=== PATIENT | female | born 1995 | race Caucasian/White ===

== ENCOUNTER 2017-05-13 16:03 | Outpatient (CLI) | payer BC ==
[2017-05-13 16:52] VITALS: BP 121/62; PULSE 77; RESP 16; TEMP 97.5
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
== END 2017-05-13 16:50 | disposition home or self-care (01) ==
LOC: FBPOP 16:03
PROVIDERS: ATTEND Obstetrics & Gynecology
DX: O99.89 Other specified diseases and conditions complicating pregnancy, childbirth and the puerperium (principal); G89.11 Acute pain due to trauma; Z3A.25 25 weeks gestation of pregnancy
CPT/HCPCS: 99213

== ENCOUNTER 2017-09-01 22:06 | Outpatient (CLI) | payer BC ==
[2017-09-01 22:51] VITALS: BP 133/70; PULSE 94; RESP 16; TEMP 97.9
--- NOTE | 2017-09-09 13:05 | P.MSEPDOC ---
Presenting Problems - Arrival Data Date of Arrival on Unit: 09/01/17 Time of Arrival on Unit: 22:05 Mode of Transport: Ambulatory - Complaint OB-Reason for Admission/Chief Complaint: Decreased Movement Medical History - Information : 2 Para: 0 Term: 0 : 0 Abortions: Spontaneous or Elective: 1 Number of Living Children: 1 - Gestational Age Gestational Age by SAUL (wks/days): 38 Weeks and 1 Days Review of Systems - Review of Systems Constitutional: No problems Breast: No problems ENT: No problems Cardiovascular: No problems Respiratory: No problems Gastrointestinal: No problems Genitourinary: No problems Musculoskeletal: No problems Neurological: No problems Skin: No problems Vital Signs - Temperature Temperature: 97.9 F Temperature Source: Temporal Artery Scan - Pulse Right Brachial Pulse Rate: 94 - Respirations Respiratory Rate: 16 Oxygen Delivery Method: Room Air - Blood Pressure Right Arm Blood Pressure: 133/70 Blood Pressure Mean: 91 Blood Pressure Source: Automatic Cuff Medical Screen Scoring (Pre) - Cervical Exam Dilation: Exam Deferred - Uterine Contractions Frequency: N/A Duration: N/A Intensity: N/A - Maternal Vital Signs Maternal Temperature: N/A Signs of Preeclampsia: N/A Maternal Respirations: N/A - Pain Assessment Pain Scale Used: Numeric (1 - 10) Pain Intensity: 0 - Maternal Trauma Maternal Trauma: N/A - Assessment Baseline FHR: 130 Heart Rate - NICHD Category: Category I (Normal) = 0 NST: Reactive Position: N/A Station: N/A - Total Score Total Score (Pre): 0 - Level of Risk Level of Risk: Low (0-5) Physician Notification (Pre) - Physician Notified Physician Notified Date: 09/01/17 Physician Notified Time: 22:40 Physician/Practitioner Notifed:: Dr. Casas Spoke With: Dr. Casas New Order Received: Yes - Notification Comment Comment: discharge pt home Disposition - Disposition OB Disposition: Discharge to home, Written follow up instructions reviewed Discharge Date: 09/01/17 Discharge Time: 22:50 I agree with the RN Medical Screening Exam: Yes Risk & Benefit of care provided described in d/c instruction: Yes Diagnosis: DECREASED MOVEMENTS, UNSP TRIMESTER, UNSP
== END 2017-09-01 22:50 | disposition home or self-care (01) ==
LOC: FBPOP 22:06
PROVIDERS: ATTEND Obstetrics & Gynecology
DX: O36.8190 Decreased fetal movements, unspecified trimester, not applicable or unspecified (principal); Z3A.38 38 weeks gestation of pregnancy
CPT/HCPCS: 59025; 99213

== ENCOUNTER 2018-01-27 20:00 | Emergency (ER) | payer BC, OTHER ==
--- NOTE | 2018-01-27 22:03 | ED ---
General Adult HPI - General Chief complaint: Urogenital Stated complaint: Dysuria Time Seen by Provider: 01/27/18 21:55 Source: patient, RN notes reviewed Mode of arrival: ambulatory Limitations: no limitations - History of Present Illness Initial comments: Patient is a pleasant 22-year-old female presenting to the emergency Department with complaints of dysuria. Onset of symptoms was a couple of days ago. Patient has noticed occasional blood. No discharge or vaginal discharge. No pelvic pain. No patient did have unprotected intercourse 1 week ago and does have some concern of possible STD. Patient did have an IUD placed 2 months ago. No back pain. Symptoms are not similar to previous urinary tract infection. - Related Data Previous Rx's Medication Instructions Recorded Sulfamethox-Tmp 800-160Mg [Bactrim 1 each PO Q12HR #14 tab 01/27/18 DS 800-160 mg] Allergies Allergy/AdvReac Type Severity Reaction Status Date / Time No Known Allergies Allergy Verified 01/27/18 22:26 Review of Systems ROS Statement: Those systems with pertinent positive or pertinent negative responses have been documented in the HPI. ROS Other: All systems not noted in ROS Statement are negative. Constitutional: Denies: fever Eyes: Denies: eye pain ENT: Denies: ear pain Respiratory: Denies: cough Cardiovascular: Denies: chest pain Endocrine: Denies: fatigue Gastrointestinal: Denies: abdominal pain Genitourinary: Reports: dysuria. Denies: discharge Musculoskeletal: Denies: back pain Skin: Denies: rash Neurological: Denies: weakness Past Medical History Past Medical History: No Reported History History of Any Multi-Drug Resistant Organisms: None Reported Past Surgical History: Appendectomy, Section, Cholecystectomy Past Anesthesia/Blood Transfusion Reactions: No Reported Reaction Past Psychological History: No Psychological Hx Reported Smoking Status: Current every day smoker Past Alcohol Use History: Occasional Past Drug Use History: Marijuana - Past Family History Mother Family Medical History: No Reported History General Exam Limitations: no limitations General appearance: alert, in no apparent distress Head exam: Present: atraumatic Eye exam: Present: normal appearance, PERRL ENT exam: Present: normal oropharynx Neck exam: Present: normal inspection Respiratory exam: Present: normal lung sounds bilaterally Cardiovascular Exam: Present: regular rate, normal rhythm GI/Abdominal exam: Present: soft. Absent: distended, tenderness External exam: Present: normal external exam (HELDER Hilliard is present during entire exam) Speculum exam: Present: normal speculum exam By manual exam: Present: normal by manual exam Extremities exam: Present: normal inspection Neurological exam: Present: alert Psychiatric exam: Present: normal affect, normal mood Skin exam: Present: normal color Course Vital Signs 01/27/18 20:41 Temperature 98.3 F Pulse Rate 100 Respiratory 20 Rate Blood Pressure 125/85 O2 Sat by Pulse 99 Oximetry Medical Decision Making - Medical Decision Making Urinalysis is questionable for mild urinary tract infection. Patient would like to have antibiotics pending urine culture results. Patient updated on results at this time and need for follow-up with primary care physician and further results. - Lab Data Lab Results 01/27/18 01/27/18 01/27/18 Range/Units 21:57 21:57 21:57 Urine Color Yellow Urine Appearance Clear (Clear) Urine pH 5.5 (5.0-8.0) Ur Specific [place] 1.019 (1.001-1.035) Urine Protein Negative (Negative) Urine Glucose (UA) Negative (Negative) Urine Ketones Negative (Negative) Urine Blood Moderate H (Negative) Urine Nitrite Negative (Negative) Urine Bilirubin Negative (Negative) Urine Urobilinogen <2.0 (<2.0) mg/dL Ur Leukocyte Esterase Small H (Negative) Urine RBC 7 H (0-5) /hpf Urine WBC 5 (0-5) /hpf Ur Squamous Epith Cells 4 (0-4) /hpf Urine Bacteria Rare H (None) /hpf Urine Mucus Rare H (None) /hpf Urine HCG, Qual Not Detected (Not Detectd) Trichomonas Ag (Rapid) Negative (Negative) Disposition Clinical Impression: Dysuria Disposition: HOME SELF-CARE Condition: Stable Instructions: Urinary Tract Infection in Women (ED) Additional Instructions: Please follow-up with primary care physician in the next day or 2 for recheck. Return for fever, pelvic pain, increase urinary problems, discharge, worsening symptoms or other concerns. Prescriptions: Sulfamethox-Tmp 800-160Mg [Bactrim DS 800-160 mg] 1 each PO Q12HR #14 tab Referrals: Arminda Jimenes MD [STAFF PHYSICIAN] - 1-2 days Time of Disposition: 23:08
[2018-01-27 22:48] LABS: Appearance,Urine Clear (Clear); Bacteria,Urine Rare /hpf; Bilirubin,Urine Negative (Negative); Blood,Urine Moderate (Negative); Color,Urine Yellow; Glucose,Urine (UA) Negative (Negative); Ketones,Urine Negative (Negative); Leukocyte Esterase,Urine Small (Negative); Mucus,Urine Rare /hpf; Nitrite,Urine Negative (Negative); PH, Urine 5.5 (5.0-8.0); Protein,Urine Negative (Negative); RBC,Urine 7 /hpf (0-5); Specific Gravity,Urine 1.019 (1.001-1.035); Squamous Epithelial Cell,Urine 4 /hpf (0-4); Urobilinogen,Urine <2.0 mg/dL (<2.0); WBC,Urine 5 /hpf (0-5)
[2018-01-27 23:21] VITALS: BP 123/69; PULSE 78; RESP 16; TEMP 97.9
[2018-01-29 14:03] LABS: C. trachomatis,PCR Negative (Neg,Equiv); Chlamydia trachomatis Source Vagina; N. gonorrhoeae,PCR Negative (Neg,Equiv); Neisseria Source Vagina
== END 2018-01-27 23:21 | disposition home or self-care (01) ==
LOC: EC 20:00
DX: R30.0 Dysuria (principal); F17.200 Nicotine dependence, unspecified, uncomplicated; Z90.49 Acquired absence of other specified parts of digestive tract; Z97.5 Presence of (intrauterine) contraceptive device
CPT/HCPCS: 81001; 81025; 87070; 87086; 87205; 87491; 87591; 87808; 99283

== ENCOUNTER 2023-09-03 11:29 | Outpatient (CLI) | payer BC, OTHER ==
--- NOTE | 2023-09-03 12:56 | US ---
EXAMINATION TYPE: US OB limited DATE OF EXAM: 09/03/2023 COMPARISON: NONE CLINICAL INDICATION: Female, 28 years old with history of vaginal bleeding; spotting Patient has hx o f UTI last month. EXAM PERFORMED: Transabdominal (TA) GESTATIONAL AGE / DATING Physician Established: (30 weeks/2 days) EDC: 11/10/2023 No growth performed on today?s study per ordering physician SURVEY PLACENTA: Posterior PREVIA: No Previa Ultrasound evidence of abruption? No (Tech?if abnormal transabdominally?image transvaginally to substantiate abnormality.) HEART RATE: 158 bpm RHYTHM: Normal IMPRESSION: Single viable intrauterine gestation with ultrasound evidence for complication.
[2023-09-03 14:29] VITALS: BP 115/57; PULSE 82; RESP 17; TEMP 97.6
--- NOTE | 2023-09-09 07:58 | P.MSEPDOC ---
Presenting Problems - Arrival Data Date of Arrival on Unit: 09/03/23 Time of Arrival on Unit: 11:29 Mode of Transport: Ambulatory - Complaint OB-Reason for Admission/Chief Complaint: Vaginal Bleeding Comment: pt presents to triage for spotting for the last few days, and getting worse, dk red blood per pt Medical History - Information : 3 Para: 1 Term: 1 : 0 Abortions: Spontaneous or Elective: 1 Number of Living Children: 1 - Gestational Age Gestational Age by SAUL (wks/days): 30 Weeks and 2 Days Review of Systems - Review of Systems Constitutional: No problems Breast: No problems ENT: No problems Cardiovascular: No problems Respiratory: No problems Gastrointestinal: No problems Genitourinary: No problems Musculoskeletal: No problems Neurological: No problems Skin: No problems Vital Signs - Temperature Temperature: 97.6 F Temperature Source: Temporal Artery Scan - Pulse Right Brachial Pulse Rate: 82 Pulse Assessment Method: Automatic Cuff - Respirations Respiratory Rate: 17 Oxygen Delivery Method: Room Air - Blood Pressure Right Arm Blood Pressure: 115/57 Blood Pressure Mean: 76 Blood Pressure Source: Automatic Cuff Medical Screen Scoring - Cervical Exam Dilation (cm): 0 Membranes: Intact - Assessment - Baby A Baseline FHR: 120 Heart Rate - NICHD Category: Category I (Normal) NST: Reactive Physician Notification - Physician Notified Physician Notified Date: 09/03/23 New Order Received: Yes - Notification Comment Comment: ultrasound of placenta and cervical exam performed, no abruption or previa per ultrasound, cervical exam closed thick and high, pt discharged home and will follow up in the office Maternal Triage Index - Maternal Triage Index Presenting for scheduled procedure w/no complaint: No - Stat/Priority 1 Stat Priority 1: No - Urgent/Priority 2 Urgent Priority 2: Yes Provider Notified: Fernanda Weston Provider Notified Time: 12:10 Criteria Met for Priority 2: pt presents to triage for spotting for the last few days, and getting worse, dk red blood per pt Disposition - Disposition OB Disposition: Triage, Discharge to home, Written follow up instructions reviewed Discharge Date: 09/03/23 Discharge Time: 13:25 I agree with the RN Medical Screening Exam: Yes Physician's MSE Comment: I have neither seen nor examined the patient Case reviewed; plan agreed upon as documented in EMR&OBIX.: Yes Diagnosis: MATERNAL CARE FOR PROBLEM, UNSP, THIRD * DO NOT USE *
== END 2023-09-03 13:25 | disposition home or self-care (01) ==
LOC: FBPOP 11:29
PROVIDERS: ATTEND Obstetrics & Gynecology
DX: O26.853 Spotting complicating pregnancy, third trimester (principal); O99.333 Smoking (tobacco) complicating pregnancy, third trimester; F17.200 Nicotine dependence, unspecified, uncomplicated; Z3A.30 30 weeks gestation of pregnancy; Z87.440 Personal history of urinary (tract) infections
CPT/HCPCS: 59025; 76815; 99213

== ENCOUNTER 2023-09-05 12:36 | Outpatient (CLI) | payer BC, OTHER ==
[2023-09-05 13:32] LABS: HCT 32.4 % (34.0-46.0); HGB 10.8 gm/dL (11.4-16.0); MCH 27.2 pg (25.0-35.0); MCHC 33.3 g/dL (31.0-37.0); MCV 81.8 fL (80.0-100.0); Mean Platelet Volume 6.9; Platelet Count 300 k/uL (150-450); RBC 3.96 m/uL (3.80-5.40); RDW 13.4 % (11.5-15.5); WBC 11.4 k/uL (3.8-10.6)
--- NOTE | 2023-09-05 14:42 | P.GSCN ---
History of Present Illness Consult date: 09/05/23 History of present illness: CHIEF COMPLAINT: Rectal bleeding HISTORY OF PRESENT ILLNESS: This is a 28-year-old female who presented to the [facility] triage for rectal bleeding. She has a known history of hemorrhoids. Patient reports last week she was done with hemorrhoids with mild bleeding and constipation. She adjusted the vitamin that was causing constipation and since then stools have been soft. However, this morning she had rectal bleeding with small clots and stool. And then she also passed blood with no stool. She denies any abdominal pain. Denies any rectal pain or irritation at this time. She denies any nausea or vomiting. Vitals have been stable. Hemoglobin is at 10.8. Patient does have prior history of anemia with her last . She denies being on any blood thinners. Last colonoscopy was over 10 years and had anal lesions at that time. PAST MEDICAL HISTORY: See below PAST SURGICAL HISTORY: See below MEDICATIONS: See below ALLERGIES: See below SOCIAL HISTORY: No illicit drug use. REVIEW OF SYSTEMS: CONSTITUTIONAL: Denies fever or chills. HEENT: Denies blurred vision, vision changes, or eye pain. Denies hemoptysis CARDIOVASCULAR: Denies chest pain or pressure. RESPIRATORY: No shortness of breath. GASTROINTESTINAL: See HPI for pertinent findings HEMATOLOGIC: Denies bleeding disorders. GENITOURINARY: Denies any blood in urine or increased urinary frequency. SKIN: Denies pruitis. Denies rash. PHYSICAL EXAM: VITAL SIGNS: stable. BP 115/65 HR 83 T 97.2 on room air 98% GENERAL: Well-developed in no acute distress. HEENT: No sclera icterus. Extraocular movements grossly intact. Moist buccal mucosa. Head is atraumatic, normocephalic. No nasal drainage. ABDOMEN: Soft. Obese. Nondistended. nontender Rectal: small external hemorrhoid. good rectal tone. tiny pink ting noted on glove during rectal. unable to palpate internal hemorrhoids. No stool present. Nontender NEUROLOGIC: Alert and oriented. Cranial nerves II through XII grossly intact. LABORATORY DATA: WBC 11.4 HGB 10.8 plt 300 IMAGING: ASSESSMENT: 1. Rectal bleeding likely due to hemorrhoids 2. Anemia 3. History of hemorrhoids with constipation 4. 30 weeks PLAN: -Patient can be discharged from surgical standpoint -Recommend outpatient follow-up in [address] Felder -Recommend to continue hemorrhoid cream -Tucks pads ordered Thank you for this consultation Physician Chain Sales Representative note has been reviewed by physician. Signing provider agrees with the documented findings, assessment, and plan of care. Past Medical History Past Medical History: No Reported History History of Any Multi-Drug Resistant Organisms: None Reported Past Surgical History: Appendectomy, Section, Cholecystectomy Past Anesthesia/Blood Transfusion Reactions: No Reported Reaction Smoking Status: Never smoker - Past Family History Mother Family Medical History: No Reported History Medications and Allergies Home Medications Medication Instructions Recorded Confirmed Type Omeprazole 20 mg PO DAILY 09/03/23 09/05/23 History Vit No.179/Iron/Folic 1 each PO DAILY 09/03/23 09/05/23 History [ Tablet] Allergies Allergy/AdvReac Type Severity Reaction Status Date / Time No Known Allergies Allergy Verified 09/05/23 12:49 Results - Labs 09/05/23 13:20 Abnormal Lab Results - Last 24 Hours (Table) 09/05/23 Range/Units 13:20 WBC 11.4 H (3.8-10.6) k/uL Hgb 10.8 L (11.4-16.0) gm/dL Hct 32.4 L (34.0-46.0) %
[2023-09-05 15:37] VITALS: BP 115/65; PULSE 83; RESP 18; TEMP 97.2
--- NOTE | 2023-09-09 07:59 | P.MSEPDOC ---
Presenting Problems - Arrival Data Date of Arrival on Unit: 09/05/23 Time of Arrival on Unit: 12:36 Mode of Transport: Ambulatory - Complaint OB-Reason for Admission/Chief Complaint: Other Comment: rectal bleeding Medical History - Information : 3 Para: 1 Term: 1 : 0 Abortions: Spontaneous or Elective: 1 Number of Living Children: 1 - Gestational Age Gestational Age by SAUL (wks/days): 30 Weeks and 4 Days Review of Systems - Review of Systems Constitutional: No problems Breast: No problems ENT: No problems Cardiovascular: No problems Respiratory: No problems Gastrointestinal: No problems Genitourinary: No problems Musculoskeletal: No problems Neurological: No problems Skin: No problems Vital Signs - Temperature Temperature: 97.2 F Temperature Source: Temporal Artery Scan - Pulse Right Sitting Pulse Rate: 83 Pulse Assessment Method: Automatic Cuff - Respirations Respiratory Rate: 18 Oxygen Delivery Method: Room Air O2 Sat by Pulse Oximetry: 98 - Blood Pressure Right Arm Supine Blood Pressure: 115/65 Blood Pressure Mean: 81 Blood Pressure Source: Automatic Cuff Medical Screen Scoring - Assessment - Baby A Baseline FHR: 125 Heart Rate - NICHD Category: Category I (Normal) NST: Reactive Physician Notification - Physician Notified Physician Notified Date: 09/05/23 Physician Notified Time: 12:55 Physician: Fernanda Weston Order Received: Yes (consult GI, draw cbc) - Notification Comment Comment: rounded on by GI, cleared for discharge with 1 week follow up with Emerita in office. script sent for tucks pads Maternal Triage Index - Maternal Triage Index Presenting for scheduled procedure w/no complaint: No - Stat/Priority 1 Stat Priority 1: No - Urgent/Priority 2 Urgent Priority 2: No - Prompt/Priority 3 Prompt Priority 3: No - Non-Urgent/Priority 4 Non-Urgent Priority 4: Yes Criteria Met for Priority 4: non urgent rectal bleeding, no vag bleeding, contractions, or other preg complaint Disposition - Disposition OB Disposition: Triage, Discharge to home, Written follow up instructions reviewed Discharge Date: 09/05/23 Discharge Time: 14:50 I agree with the RN Medical Screening Exam: Yes Physician's MSE Comment: I have neither seen nor examined the patient Case reviewed; plan agreed upon as documented in EMR&OBIX.: Yes Diagnosis: MATERNAL CARE FOR PROBLEM, UNSP, THIRD * DO NOT USE *
== END 2023-09-05 14:50 | disposition home or self-care (01) ==
LOC: FBPOP 12:36
PROVIDERS: ATTEND Obstetrics & Gynecology
DX: O47.03 False labor before 37 completed weeks of gestation, third trimester (principal); O99.333 Smoking (tobacco) complicating pregnancy, third trimester; F17.200 Nicotine dependence, unspecified, uncomplicated; Z3A.30 30 weeks gestation of pregnancy
CPT/HCPCS: 36415; 59025; 85027; 99213

== ENCOUNTER 2023-09-16 17:40 | Outpatient (CLI) | payer BC, OTHER ==
[2023-09-16] MEDS ORDERED: ACETAMINOPHEN TAB 325 MG TAB PO STA (18:33)
[2023-09-16 20:39] VITALS: BP 108/57; PULSE 89; RESP 16; TEMP 98.5
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
== END 2023-09-16 19:40 | disposition home or self-care (01) ==
LOC: FBPOP 17:40
PROVIDERS: ATTEND Obstetrics & Gynecology
DX: Z04.1 Encounter for examination and observation following transport accident (principal); O9A.213 Injury, poisoning and certain other consequences of external causes complicating pregnancy, third trimester; O99.333 Smoking (tobacco) complicating pregnancy, third trimester; F17.200 Nicotine dependence, unspecified, uncomplicated; Z3A.32 32 weeks gestation of pregnancy; V49.60XA Unspecified car occupant injured in collision with unspecified motor vehicles in traffic accident, initial encounter; Y92.410 Unspecified street and highway as the place of occurrence of the external cause
CPT/HCPCS: 59025; 99213

== ENCOUNTER 2023-11-03 05:57 | Inpatient (IN) | payer BC, OTHER ==
[2023-11-03] MEDS ORDERED: OXYTOCIN 10 UNIT/ML 1 ML VIAL IM PRN (06:06)
[2023-11-03] MEDS ORDERED: TERBUTALINE 1 MG/ML VIAL SQ PRN (06:06)
[2023-11-03] MEDS ORDERED: miSOPROStoL 200 MCG TAB PO PRN (06:06)
[2023-11-03] MEDS ORDERED: TRANEXAMIC 1,000 MG/100ML-NACL 1,000 MG in EMPTY BAG 1 BAG IV PRN (06:06)
[2023-11-03] MEDS ORDERED: METHYLERGONOVINE 0.2 MG/ML 1 ML AMP IM PRN (06:06)
[2023-11-03] MEDS ORDERED: LIDOCAINE 0.5% (PF) 5 MG/ML (50 ML SDV) SQ PRN (06:06)
[2023-11-03] MEDS ORDERED: CARBOPROST TROMETHAMINE 250 MCG/ML 1 ML AMP IM PRN (06:06)
[2023-11-03] MEDS: LACTATED RINGERS 1,000 ML IV SCH ×4 (06:19→19:07)
[2023-11-03 06:35] LABS: Basophils # (A) 0.1 k/uL (0-0.2); Basophils % (A) 0 %; Eosinophils # (A) 0.2 k/uL (0-0.7); Eosinophils % (A) 2 %; HCT 32.9 % (34.0-46.0); HGB 11.3 gm/dL (11.4-16.0); Hypochromasia Slight; Lymphocytes # (A) 2.2 k/uL (1.0-4.8); Lymphocytes % (A) 17 %; MCH 26.3 pg (25.0-35.0); MCHC 34.4 g/dL (31.0-37.0); Mean Platelet Volume 7.2; Monocytes # (A) 0.5 k/uL (0-1.0); Monocytes % (A) 4 %; Neutrophils # (A) 9.6 k/uL (1.3-7.7); Neutrophils % (A) 75 %; Platelet Count 281 k/uL (150-450); RBC 4.31 m/uL (3.80-5.40); RDW 14.5 % (11.5-15.5); WBC 12.8 k/uL (3.8-10.6)
[2023-11-03] MEDS: OXYTOCIN 30 UNITS/500 ML NS 30 UNIT in SALINE 1 500ML.BAG IV SCH (06:40)
[2023-11-03 06:56] LABS: MCV 76.4 fL (80.0-100.0)
--- NOTE | 2023-11-03 09:35 | P.HPOB ---
History of Present Illness H&P Date: 11/03/23 Chief Complaint: Induction of labor Ms. Marino is a 28 year old at 39 weeks and 0 days gestation with EDC of 11/10/2023 by LMP consistent with 9 week US who presents to labor and delivery for elective induction of labor. This will be a TOLAC as she has a primary section with her last due to arrest of active labor. The patient has been counseled on the risks of TOLAC including the <1% chance of uterine rupture which is an emergency for mother and baby. The patient had a growth ultrasound at 32 weeks which estimated the fetus to be measuring in the 43%ile for growth. work-up: blood type A positive, antibody screen negative, rubella immune, VDRL non-reactive, HBsAg negative, HIV negative, HCV Ab negative, gonorrhea negative, chlamydia negative, 1 hour GTT within normal limits, GBS negative. s/p Flu and TDap vaccines on 07/09 and 08/21, respectively. Past Medical History Past Medical History: No Reported History History of Any Multi-Drug Resistant Organisms: None Reported Past Surgical History: Appendectomy, Section, Cholecystectomy Past Anesthesia/Blood Transfusion Reactions: No Reported Reaction Past Psychological History: No Psychological Hx Reported Smoking Status: Former smoker Past Alcohol Use History: Occasional Past Drug Use History: Marijuana - Past Family History Mother Family Medical History: No Reported History Medications and Allergies Home Medications Medication Instructions Recorded Confirmed Type Vit No.179/Iron/Folic 1 each PO DAILY 09/03/23 11/03/23 History [ Tablet] RX: Omeprazole 20 mg PO DAILY 09/03/23 11/03/23 History Allergies Allergy/AdvReac Type Severity Reaction Status Date / Time No Known Allergies Allergy Verified 11/03/23 06:05 Exam Vital Signs Temp Pulse Resp BP Pulse Ox 11/03/23 06:04 96.8 F L 100 18 110/61 97 Intake and Output 11/02/23 11/03/23 11/03/23 22:59 06:59 14:59 Other: Weight 127.913 kg Focused physical exam is performed. This is a healthy-appearing in no apparent distress. Breathing is non-labored. Abdomen is gravid and non-tender. Cervical exam is fingertip dilated, 0% effacement, -3 station. A cooks catheter is placed with a speculum exam and both balloons are filled with 60cc of sterile water. Extremities non-tender and non-edematous. heart tones are Category I and tocometer is not graphing contractions well at this time. Results Result Diagrams: 11/03/23 06:00 Abnormal Lab Results - Last 24 Hours (Table) 11/03/23 Range/Units 06:00 WBC 12.8 H (3.8-10.6) k/uL Hgb 11.3 L (11.4-16.0) gm/dL Hct 32.9 L (34.0-46.0) % MCV 76.4 L D (80.0-100.0) fL Neutrophils # 9.6 H (1.3-7.7) k/uL Assessment and Plan Assessment: 28 year old at 39 weeks presenting for elective induction of labor and TOLAC Plan: Admit, NPO, cooks catheter for 6-12 hours with low-dose oxytocin followed by plan for AROM and pitocin per protocol. Continuous EFM and tocometer. Close monitoring of patient. Time with Patient: Less than 30
[2023-11-03] MEDS ORDERED: fentaNYL (PF) 50 MCG/ML 5 ML AMP ONE (17:35)
[2023-11-03] MEDS ORDERED: ROPIVACAINE 5 MG/ML 30 ML VIAL ONE (17:35)
[2023-11-03] MEDS ORDERED: SODIUM CHLORIDE 0.9% 250 ML BAG ONE (17:35)
[2023-11-04] MEDS: LACTATED RINGERS 1,000 ML IV SCH (02:00)
[2023-11-04] MEDS ORDERED: ZOLPIDEM 5 MG TAB PO PRN (04:00)
[2023-11-04] MEDS ORDERED: LANOLIN CREAM 5 GM TUBE TOPICAL PRN (04:00)
[2023-11-04] MEDS ORDERED: BENZOCAINE/MENTHOL SPRAY 1 GM/SPRAY AEROSOL TOPICAL PRN (04:00)
[2023-11-04] MEDS ORDERED: diphenhydrAMINE 50 MG CAP PO PRN (04:00)
[2023-11-04] MEDS ORDERED: SIMETHICONE 80 MG CHEWABLE PO PRN (04:00)
[2023-11-04] MEDS ORDERED: ACETAMINOPHEN TAB 325 MG TAB PO PRN (04:00)
[2023-11-04] MEDS ORDERED: diphenhydrAMINE 50 MG/ML 1 ML VIAL IVP PRN ×2 (04:00)
[2023-11-04] MEDS ORDERED: diphenhydrAMINE 25 MG CAP PO PRN (04:00)
[2023-11-04] MEDS ORDERED: HYDROCORTISONE 2.5% RECTAL CREAM 30 GM TUBE RECTAL PRN (04:00)
--- NOTE | 2023-11-04 04:00 | P.PROBDLV ---
Vaginal Delivery Note - . Vaginal Delivery Note: DATE OF SERVICE: 11/04/2023 PROCEDURE: Vaginal After Section ATTENDING: Dr. Fernanda Weston MD ESTIMATED BLOOD LOSS: 300 mL FINDINGS: VMI, Apgars 8/9. Weight 7 pounds and 4 ounces (3290 grams) PROCEDURE: Ms. Marino is a 28 year old at 39 weeks presenting to labor and delivery for elective induction of labor and TOLAC. The has been uncomplicated aside from one prior section for arrest in active labor. For further details, please review the admitting H&P. Pitocin was titrated per protocol. Cooks catheter was placed for cervical ripening. After cooks was removed, AROM was undertaken at 1550 revealing clear fluid. The patient received epidural anesthesia per her request. The patient was completely dilated at 256. She pushed effectively with Category I heart tones. A viable male was delivered at 330. The infant was placed on the maternal abdomen and bulb suctioned. The infant was noted to be spontaneously crying. Cord was clamped and cut after a 30-second delay. The was handed off to the pediatric team. Placenta was delivered whole with gentle cord traction at 333. Oxytocin was started to facilitate uterine tone. Uterine fundus was found to be firm and below the umbilicus upon fundal massage. Thorough examination of the cervix, vagina, periurethral area, and perineum revealed a large second degree perineal laceration that was repaired with 2-0 Vicryl in the usual fashion. The patient is stable and allowed to begin the bonding process.
[2023-11-04] MEDS: OXYTOCIN 30 UNITS/500 ML NS 30 UNIT in SALINE 1 500ML.BAG IV SCH (04:10)
[2023-11-04] MEDS: SENNOSIDES-DOCUSATE SODIUM 1 EACH TAB PO SCH ×2 (07:58→22:30)
[2023-11-04] MEDS: IBUPROFEN 600 MG TAB PO PRN ×2 (12:54→22:30)
[2023-11-05 07:09] LABS: Basophils # (A) 0.1 k/uL (0-0.2); Basophils % (A) 0 %; Eosinophils # (A) 0.4 k/uL (0-0.7); Eosinophils % (A) 3 %; HCT 30.1 % (34.0-46.0); Hypochromasia Moderate; Lymphocytes # (A) 2.5 k/uL (1.0-4.8); Lymphocytes % (A) 17 %; MCH 24.9 pg (25.0-35.0); MCHC 31.5 g/dL (31.0-37.0); MCV 78.9 fL (80.0-100.0); Mean Platelet Volume 7.3; Monocytes # (A) 0.6 k/uL (0-1.0); Monocytes % (A) 4 %; Neutrophils # (A) 11.3 k/uL (1.3-7.7); Neutrophils % (A) 75 %; Platelet Count 253 k/uL (150-450); RBC 3.81 m/uL (3.80-5.40); RDW 14.6 % (11.5-15.5)
[2023-11-05 07:39] LABS: HGB 9.5 gm/dL (11.4-16.0)
--- NOTE | 2023-11-05 08:24 | P.DS ---
Providers Date of admission: 11/03/23 05:57 Expected date of discharge: 11/05/23 Attending physician: Fernanda Weston MD Primary care physician: Stated None Hospital Course: Ms. Marino is a 28 year old now PPD#2 s/p vaginal after section that was uncomplicated. The patient is doing well this morning and had no acute events overnight. She has no complaints this morning. She reports minimal lochia, passing flatus, voiding without difficulty, ambulating, and eating/drinking without nausea or vomiting. doing well at bedside, s/p circumcision. She denies chest pain, shortness of breathing, fevers, or chills overnight. She denies pain or swelling in the legs. restrictions are reviewed with the patient including pelvic rest for 6 weeks. The patient is encouraged to call the office if she experiences any heavy bleeding, foul-smelling discharge, breast complaints, or any if she has any other concerns. She will follow up in the office with in 6 weeks for postoperative exam. She plans to use over the counter Motrin and Tylenol as needed for pain. All questions are answered. Assessment: 28 year old now PPD#2 s/p uncomplicated Patient Condition at Discharge: Good Plan - Discharge Summary New Discharge Prescriptions: No Action Vit No.179/Iron/Folic [ Tablet] 1 each PO DAILY Omeprazole 20 mg PO DAILY Discharge Medication List Omeprazole 20 mg PO DAILY 09/03/23 [History] Vit No.179/Iron/Folic [ Tablet] 1 each PO DAILY 09/03/23 [History] Follow up Appointment(s)/Referral(s): Fernanda Weston MD [STAFF PHYSICIAN] - 6 Weeks Activity/Diet/Wound Care/Special Instructions: Instructions 1. Do not begin any exercise program for 3 weeks. 2. Do not resume sexual relations for 6 weeks or longer if uncomfortable. 3. You may take tub baths or showers at any time. 4. You may use tampons if desired after 6 weeks. 5. Keep any areas repaired with stitches clean and dry. 6. If you are not nursing, wear a good fitting, supportive bra during the day and limit fluid intake for at least 1 week to prevent breast engorgement. 7. Call the office, , within the next week to make appointment for your 6 week checkup if it has not already been made. 8. Report any of the following occurrences to the doctor promptly: a. Heavy, excessive bleeding b. Chills, fever c. Burning or frequency of urination d. Pain or redness and breasts if nursing e. Increasing pain or swelling of vulva (stitches). In addition to the above instructions, the following additional should be followed: 1. No heavy lifting or straining (exercising) until after 6 week checkup. 2. Keep abdominal incision clean and dry: You may wear a dressing if more comfortable. 3. Make office appointment for 2 weeks after delivery date.. Discharge Disposition: HOME SELF-CARE
[2023-11-05 11:51] VITALS: BP 129/75; PULSE 74; RESP 17; TEMP 97.5
== END 2023-11-05 12:34 | disposition home or self-care (01) | DRG 807 ==
LOC: 4FBP 05:57
PROVIDERS: ADMIT Obstetrics & Gynecology; ATTEND Obstetrics & Gynecology
PROC: 10E0XZZ Delivery of Products of Conception, External Approach (ICD-10-PCS; principal; 2023-11-04)
PROC: 0KQM0ZZ Repair Perineum Muscle, Open Approach (ICD-10-PCS; 2023-11-04)
PROC: 10907ZC Drainage of Amniotic Fluid, Therapeutic from Products of Conception, Via Natural or Artificial Opening (ICD-10-PCS; 2023-11-04)
PROC: 0U7C7ZZ Dilation of Cervix, Via Natural or Artificial Opening (ICD-10-PCS; 2023-11-04)
PROC: 3E033VJ Introduction of Other Hormone into Peripheral Vein, Percutaneous Approach (ICD-10-PCS; 2023-11-04)
DX: O34.219 Maternal care for unspecified type scar from previous cesarean delivery (principal); O70.1 Second degree perineal laceration during delivery; Z87.891 Personal history of nicotine dependence; Z3A.39 39 weeks gestation of pregnancy; Z37.0 Single live birth
CPT/HCPCS: 85025; 86850; 86900; 86901